=== PATIENT | male | born 1975 | race Caucasian/White ===

== ENCOUNTER → 2022-07-05 | Emergency (ER) | payer SELFPAY ==
--- NOTE | 2022-07-05 14:02 | NUR ---
PT CALLED IN FOR TRIAGE - WAS NOT IN WAITING ROOM; SECURITY SAW PT WALK OUT - STATING HE WILL BE BACK. PT APPARENTLY WAS AMBULATORY AND SHOWED NO SIGN OF ACUTE DISTRESS.
== END | disposition left against medical advice (07) ==
LOC: ER 13:48
DX: Z53.21 Procedure and treatment not carried out due to patient leaving prior to being seen by health care provider (principal)